=== PATIENT | female | born 1955 | race Caucasian/White ===

== ENCOUNTER 2020-10-07 08:33 | Outpatient (CLI) | payer BC, SELFPAY ==
--- NOTE | 2020-10-07 08:30 | CT_ITS ---
WS: [id number] CT scan of the abdomen and pelvis with Oral and IV contrast. Additional two-dimensional coronal and s agittal reconstruction was performed. 10/07/2020 Clinical Data: ABDOMINAL PAIN RIGHT LOWER QUADRANT Comparison: None. DLP: 1103.[address] scans at [facility] use at least one of these dose optimization techniques: automat ed exposure control; mA and/or kV adjustment per patient size (includes targeted exams where dose is matched to clinical indication); or iterative reconstruction. Findings: The lower lungs show no nodules, masses or effusions. The liver, gallbladder, spleen, adrenal glands and pancreas are normal. The kidneys show equal bilateral contrast excretion a small right renal central cyst. No masses, hydr onephrosis or renal calculi are seen.. The abdominal aorta is normal in size. No appendicitis or diverticulitis is seen. There are numerous sigmoid diverticula. Oral contrast is i n the stomach, small bowel and colon, and there is no bowel dilatation. No abscess, adenopathy, ascites, mass, obstruction or free air is seen. The bladder is unremarkable. No inguinal hernia is seen. The uterus is absent. There are small clips in the rectus abdominis muscl es from surgery. The bones of the lower thorax, lumbar spine, pelvis, and hips are normal. Incidental bone islands are noted in the left sacrum, right ilium and right femoral head. CT/CT abdomen pelvis w con* [id number] Impression: Negative for acute intra-abdominal or pelvic abnormalities.
[2020-10-07] MEDS: iohexol 300 mg/mL 50 mL Btl PO (09:10)
[2020-10-07 10:29] LABS: Blood Urea Nitrogen 14 mg/dL (8-23); Glomerular Filtration Rate 124.6 mL/min (90-130)
[2020-10-07] MEDS: iohexol 300 mg/mL 100 mL Btl IV (10:33)
== END 2020-10-07 08:34 | disposition home or self-care (01) ==
LOC: RADWPI 08:38
PROVIDERS: PCP Family Medicine; Visit Provider Family Medicine
DX: R10.31 Right lower quadrant pain (principal)
CPT/HCPCS: 74177; 82565; 84520; Q9967

== ENCOUNTER 2020-12-23 06:53 | Outpatient (CLI) | payer BC, SELFPAY ==
--- NOTE | 2020-12-23 07:15 | USCV_ITS ---
Pilar Savage Age: 65 Gender: F : 1955 Exam Date: 12/23/2020 07:16 Ordering Phys: Jose Fagan MD Technologist: Ketty Sanchez Exam Location: [facility] [place] Indication: FOOT PAIN, LEFT HISTORY: Lower extremity pain. PROCEDURES: Venous duplex imaging was performed in only the left lower extremity. The following venous structures were evaluated: common femoral vein, profunda vein, proximal portion of the greater saphenous vein, superficial femoral vein, and the popliteal vein. In addition, the posterior tibial and peroneal trunk were evaluated. Serial compression, augmentation maneuvers, and spectral Doppler flow evaluation were performed. FINDINGS: Normal 2-D Doppler and augmentation and compressibility throughout the lower extremity venous structures. Additional imaging through the proximal calf veins also reveals no thrombus. Limited evaluation of the greater saphenous vein is patent with no thrombus.. CONCLUSIONS No evidence of left lower extremity DVT. Karthikeyan Vaughan MD (Electronically Signed) Final Date: 23 December 2020 08:30 S
== END 2020-12-23 06:54 | disposition home or self-care (01) ==
LOC: RAD 06:57
PROVIDERS: PCP Family Medicine; Visit Provider Family Medicine
DX: M79.672 Pain in left foot (principal)
CPT/HCPCS: 93971

== ENCOUNTER 2021-02-19 08:08 | Outpatient (CLI) | payer BC, SELFPAY ==
--- NOTE | 2021-02-19 08:27 | XR_ITS ---
WS: [id number] LEFT ANKLE: 3 VIEW(S) TECHNIQUE: AP, oblique(s) and lateral. HISTORY: LEFT FOOT PAIN COMPARISON: None available. Normal anatomic alignment with no fracture or dislocation. No joint effusion or widening of the ankle mortise. No significant degenerative changes at the joint spaces. No soft tissue abnormality. XR/XR ankle LT min 3V* [id number] IMPRESSION: Normal LEFT ankle.
== END 2021-02-19 08:09 | disposition home or self-care (01) ==
PROVIDERS: PCP Family Medicine; Visit Provider Family Medicine
DX: M79.672 Pain in left foot (principal)
CPT/HCPCS: 73610

== ENCOUNTER → 2022-03-14 07:54 | Outpatient (BNVA) | payer MEDICARE, SELFPAY | PROVIDERS: PCP Family Medicine; Visit Provider Surgery | DX: K21.9 Gastro-esophageal reflux disease without esophagitis (principal) | CPT/HCPCS: 99204 ==

== ENCOUNTER 2022-05-04 09:34 | Day surgery (SDC) | payer MEDICARE, SELFPAY ==
[2022-05-03 08:35] VITALS: BMI 30.2
[2022-05-04 09:54] VITALS: BP 151/83; PULSE 80; RESP 18; TEMP 37; O2SAT 98
[2022-05-04] MEDS: sodium chloride 0.9% 1,000 ML 30 ML IV (10:02)
--- NOTE | 2022-05-04 10:52 | ANES.PREANE2 ---
Pre-Anesthetic Assessment Height/Weight: Height 1.57 m Weight 74.843 kg Temp Pulse Resp BP Pulse Ox 98.6 F 80 18 151/83 98 05/04/22 09:54 05/04/22 09:54 05/04/22 09:54 05/04/22 09:54 05/04/22 09:54 Preop Diagnosis: upper gi symptoms Operation Date: 05/04/22 11:00 Proposed Procedures p EGD 50893/k21.9(Not Applicable) - Ravi Penny MD Last intake: Intake Last Liquid Date 05/03/22 Last Liquid Time 20:00 Last Solid Date 05/03/22 Last Solid Time 20:00 Airway Submandibular: within normal limits Cervical ROM: within normal limits Mallampati: Class I GERD poorly controlled Anesthetic Plan ASA status: 2 Anesthesia: MAC Medications/Allergies Home Medications Medication Instructions Recorded Confirmed Last Taken Type amlodipine 10 mg tablet 10 mg PO DAILY 05/03/22 05/03/22 05/03/22 History ascorbic acid (vitamin C) 500 mg 500 mg PO DAILY 05/03/22 05/03/22 05/03/22 History tablet (Vitamin C) atorvastatin 10 mg tablet 10 mg PO DAILY 05/03/22 05/03/22 05/03/22 History cholecalciferol (vitamin D3) 50 50 mcg PO DAILY 05/03/22 05/03/22 05/03/22 History mcg (2,000 unit) capsule (Vitamin D3) coenzyme Q10 100 mg capsule 100 mg PO DAILY 05/03/22 05/03/22 05/03/22 History (CoQ-10) tamoxifen 20 mg tablet 20 mg PO DAILY 05/03/22 05/03/22 05/03/22 History venlafaxine 37.5 mg tablet 37.5 mg PO DAILY 05/03/22 05/03/22 05/03/22 History Allergies Allergy/AdvReac Type Severity Reaction Status Date / Time No Known Allergies Allergy Verified 05/03/22 08:33 Current Medications Generic Name Dose Route Start Last Admin Trade Name Freq PRN Reason Stop Dose Admin Sodium Chloride 1,000 mls @ 30 mls/hr 05/04/22 10:00 05/04/22 10:02 Sodium Chloride 0.9% IV 05/05/22 09:59 30 mls/hr .Q24H RAN Administration PFSH Anesthesia Medical History Dyslipidemia GERD (gastroesophageal reflux disease) History of breast cancer Hypertension Surgical History History of breast reconstruction History of colonoscopy History of hysterectomy History of left mastectomy Social History Smoking and tobacco status: never smoked Data Anesthesia Cardiac Studies: No Data to Display
--- NOTE | 2022-05-04 11:39 | W.PM.OPSFHP ---
Same Day Surgery H&P Indication for Procedure/HPI DATE OF PROCEDURE: May 04, 2022 CHIEF COMPLAINT/INDICATIONFOR SURGICAL PROCEDURE: egd PREOP DIAGNOSIS: upper gi symptoms PLANNED PROCEDURE: Operation Date: 05/04/22 11:00 Proposed Procedures p EGD 43342/k21.9(Not Applicable) - Ravi Penny MD Medications/Allergies* Home Medications Medication Instructions Recorded Confirmed Type amlodipine 10 mg tablet 10 mg PO DAILY 05/03/22 05/03/22 History ascorbic acid (vitamin C) 500 mg 500 mg PO DAILY 05/03/22 05/03/22 History tablet (Vitamin C) atorvastatin 10 mg tablet 10 mg PO DAILY 05/03/22 05/03/22 History cholecalciferol (vitamin D3) 50 50 mcg PO DAILY 05/03/22 05/03/22 History mcg (2,000 unit) capsule (Vitamin D3) coenzyme Q10 100 mg capsule 100 mg PO DAILY 05/03/22 05/03/22 History (CoQ-10) tamoxifen 20 mg tablet 20 mg PO DAILY 05/03/22 05/03/22 History venlafaxine 37.5 mg tablet 37.5 mg PO DAILY 05/03/22 05/03/22 History Allergies/Adverse Reactions Allergy/AdvReac Type Severity Reaction Status Date / Time No Known Allergies Allergy Verified 05/03/22 08:33 Current Medications: Generic Name Dose Route Start Last Admin Trade Name Freq PRN Reason Stop Dose Admin Sodium Chloride 1,000 mls @ 30 mls/hr 05/04/22 10:00 05/04/22 10:02 Sodium Chloride 0.9% IV 05/05/22 09:59 30 mls/hr .Q24H RAN Administration Pertinent History/Comorbid Conditions* Medical History (Updated 03/14/22 @ 08:18 by Ravi Penny MD) Dyslipidemia GERD (gastroesophageal reflux disease) History of breast cancer Hypertension Surgical History (Updated 03/14/22 @ 08:18 by Ravi Penny MD) History of breast reconstruction History of colonoscopy History of hysterectomy History of left mastectomy Social History Smoking and tobacco status: never smoked Pertinent Exam Findings alert, oriented x 3 and regular rate & rhythm Recommendations Surgery/Procedure today Coding Level of Care Code Acute [employer]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
[2022-05-04 12:03] VITALS: BP 155/73; PULSE 88; RESP 18; TEMP 36.4; O2SAT 96
[2022-05-04 12:19] VITALS: BP 145/78; PULSE 72; RESP 16; O2SAT 96
--- NOTE | 2022-05-04 13:25 | ANE.PACU2 ---
Inpatient post-anesthesia follow up: Vital signs: Temperature 97.5 F Pulse Rate 72 Respiratory Rate 16 Blood Pressure 145/78 Pulse Oximetry 96 Oxygen Delivery Me thod Room Air Oxygen Flow Rate 4 Fraction of Inspir ed Oxygen Hydration adequate: Yes Nausea and vomiting: No Pain level: 1 Mental status: Baseline
== END 2022-05-04 12:25 | disposition home or self-care (01) ==
PROVIDERS: PCP Family Medicine; Visit Provider Surgery
PROC: 0DJ08ZZ Inspection of Upper Intestinal Tract, Via Natural or Artificial Opening Endoscopic (ICD-10-PCS; CPT 43235; principal; 2022-05-04 11:00)
DX: K21.9 Gastro-esophageal reflux disease without esophagitis (principal); K20.90 Esophagitis, unspecified without bleeding; E78.5 Hyperlipidemia, unspecified; I10 Essential (primary) hypertension; Z85.3 Personal history of malignant neoplasm of breast; K29.50 Unspecified chronic gastritis without bleeding; B96.81 Helicobacter pylori [H. pylori] as the cause of diseases classified elsewhere
CPT/HCPCS: 43239; 88305; J2704; J7030

== ENCOUNTER → 2022-05-17 09:38 | Outpatient (BNVA) | payer MEDICARE, SELFPAY | PROVIDERS: PCP Family Medicine; Visit Provider Surgery | DX: Z09 Encounter for follow-up examination after completed treatment for conditions other than malignant neoplasm (principal) | CPT/HCPCS: 99212 ==

== ENCOUNTER → 2022-08-08 14:14 | Outpatient (BNVA) | payer MEDICARE, SELFPAY | PROVIDERS: PCP Family Medicine; Visit Provider Family Medicine | DX: J40 Bronchitis, not specified as acute or chronic (principal); Z20.822 Contact with and (suspected) exposure to COVID-19 | CPT/HCPCS: 87426 ==

== ENCOUNTER → 2022-08-15 08:19 | Outpatient (BNVA) | payer MEDICARE, SELFPAY | PROVIDERS: PCP Family Medicine; Referring Provider Family Medicine; Visit Provider Surgery | DX: R10.9 Unspecified abdominal pain (principal); K21.9 Gastro-esophageal reflux disease without esophagitis | CPT/HCPCS: 99203; 99213 ==

== ENCOUNTER 2022-08-25 10:22 | Outpatient (CLI) | payer MEDICARE, SELFPAY | END 2022-08-25 10:23 | disposition home or self-care (01) | LOC: LAB 10:26 | PROVIDERS: PCP Family Medicine; Visit Provider Surgery | DX: A04.8 Other specified bacterial intestinal infections (principal); K21.9 Gastro-esophageal reflux disease without esophagitis; R10.9 Unspecified abdominal pain | CPT/HCPCS: 87338 ==

== ENCOUNTER → 2022-11-07 07:59 | Outpatient (BNVA) | payer MEDICARE, SELFPAY | PROVIDERS: PCP Family Medicine; Visit Provider Family Medicine | DX: E78.5 Hyperlipidemia, unspecified (principal); I10 Essential (primary) hypertension; Z85.3 Personal history of malignant neoplasm of breast | CPT/HCPCS: 80053; 80061; 85025 ==

== ENCOUNTER → 2022-11-16 09:32 | Outpatient (BNVA) | payer MEDICARE, SELFPAY | PROVIDERS: PCP Family Medicine; Visit Provider Podiatrist Foot & Ankle Surgery | DX: M19.071 Primary osteoarthritis, right ankle and foot (principal); M19.072 Primary osteoarthritis, left ankle and foot; M21.621 Bunionette of right foot; M21.622 Bunionette of left foot | CPT/HCPCS: 73630; 99204 ==

== ENCOUNTER → 2023-03-16 08:26 | Outpatient (BNVA) | payer MEDICARE, SELFPAY | PROVIDERS: PCP Family Medicine; Visit Provider Family Medicine | DX: I10 Essential (primary) hypertension (principal); E78.5 Hyperlipidemia, unspecified; Z51.81 Encounter for therapeutic drug level monitoring | CPT/HCPCS: 80053; 80061; 85025 ==

== ENCOUNTER → 2023-10-09 08:18 | Outpatient (BNVA) | payer MEDICARE, SELFPAY | PROVIDERS: PCP Family Medicine; Visit Provider Family Medicine | DX: E78.5 Hyperlipidemia, unspecified (principal); I10 Essential (primary) hypertension | CPT/HCPCS: 80053; 80061; 85025 ==

== ENCOUNTER → 2023-10-10 13:23 | Outpatient (BNVA) | payer MEDICARE, SELFPAY | PROVIDERS: PCP Family Medicine; Visit Provider Family Medicine | DX: J02.9 Acute pharyngitis, unspecified (principal) | CPT/HCPCS: 87070 ==

== ENCOUNTER → 2023-11-14 11:04 | Outpatient (BNVA) | payer MEDICARE, SELFPAY | PROVIDERS: PCP Family Medicine; Visit Provider Family Medicine | DX: J40 Bronchitis, not specified as acute or chronic (principal); J06.9 Acute upper respiratory infection, unspecified | CPT/HCPCS: 87400 ==

== ENCOUNTER 2023-11-17 13:53 | Outpatient (CLI) | payer MEDICARE, SELFPAY ==
--- NOTE | 2023-11-17 14:13 | XRR_ITS ---
PROCEDURE INFORMATION: Exam: XR Chest Exam date and time: 11/17/2023 2:23 PM Age: 68 years old Clinical indication: Cough and fever; Prior surgery; Surgery date: 6+ months; Surgery type: Left breast mastectomy; Patient HX: HX of breast cancer. Upper respiratory infection; Intermittent fever; Productive cough; HX breast CA & lt mastectomy with reconstruction TECHNIQUE: Imaging protocol: Radiologic exam of the chest. Views: 2 views. COMPARISON: CT abdomen pelvis w con* [id number] 10/07/2020 10:31 AM FINDINGS: Lungs: Unremarkable. No consolidation. Pleural spaces: Unremarkable. No pleural effusion. No pneumothorax. Heart/Mediastinum: Unremarkable. No cardiomegaly. Bones/joints: Unremarkable. XR/XR chest 2V* [id number] IMPRESSION: No acute findings.
== END 2023-11-17 13:54 | disposition home or self-care (01) ==
LOC: LAB 13:58
PROVIDERS: PCP Family Medicine; Visit Provider Family Medicine
DX: J06.9 Acute upper respiratory infection, unspecified (principal); Z90.12 Acquired absence of left breast and nipple; Z85.3 Personal history of malignant neoplasm of breast; R50.9 Fever, unspecified
CPT/HCPCS: 71046; 80053; 85025; 86140

== ENCOUNTER → 2023-12-07 11:32 | Outpatient (BNVA) | payer MEDICARE, SELFPAY | PROVIDERS: PCP Family Medicine; Visit Provider Clinical Nurse Specialist Adult Health | DX: J06.9 Acute upper respiratory infection, unspecified (principal); J02.9 Acute pharyngitis, unspecified | CPT/HCPCS: 85025; 86140; 86308; 87070; 87420; 87880 ==

== ENCOUNTER → 2024-02-20 13:13 | Outpatient (BNVA) | payer MEDICARE, SELFPAY | PROVIDERS: PCP Family Medicine; Visit Provider Family Medicine | DX: R20.2 Paresthesia of skin (principal) | CPT/HCPCS: 80053; 86140 ==

== ENCOUNTER → 2024-07-12 07:44 | Outpatient (BNVA) | payer MEDICARE, SELFPAY | PROVIDERS: PCP Family Medicine; Visit Provider Family Medicine | DX: I10 Essential (primary) hypertension (principal); E78.5 Hyperlipidemia, unspecified; K21.9 Gastro-esophageal reflux disease without esophagitis; Z85.3 Personal history of malignant neoplasm of breast | CPT/HCPCS: 80053; 80061; 85025 ==

== ENCOUNTER 2024-10-15 15:27 | Outpatient (CLI) | payer MEDICARE, SELFPAY ==
--- NOTE | 2024-10-15 15:33 | XR_ITS ---
WS: [id number] Exam: XR hip RT 1V wo/w pel [id number] Date/Time of Exam: 10/15/2024 3:38 PM Reason For Exam: hip pain No acute fracture. Minimal degenerative change of the acetabulum. Normal soft tissues. Surgical clips in the RIGHT abdomen and pelvis. XR/XR hip RT 1V wo/w pel [id number] IMPRESSION: 1. Minimal degenerative change.
--- NOTE | 2024-10-15 15:33 | XR_ITS ---
WS: [id number] Exam: XR lumbar spine 1V [id number] Date/Time of Exam: 10/15/2024 3:38 PM Reason For Exam: back pain Single lateral view of the lumbar spine is submitted. No fracture noted. Facet arthropathy at L4-5 an d L5-S1. Slight degenerative anterolisthesis of L4 on L5. Mild disc space narrowing at all levels. Mi nimal spondylosis. IMPRESSION1. No fracture or malalignment. 2. Degenerative changes as above.
== END 2024-10-15 15:28 | disposition home or self-care (01) ==
LOC: RAD 15:30
PROVIDERS: PCP Family Medicine; Visit Provider Family Medicine
DX: M47.896 Other spondylosis, lumbar region (principal); M25.551 Pain in right hip
CPT/HCPCS: 72020; 73501

== ENCOUNTER → 2024-12-03 09:06 | Outpatient (BNVA) | payer MEDICARE, OTHER, SELFPAY | PROVIDERS: PCP Family Medicine; Visit Provider Family Medicine | DX: J06.9 Acute upper respiratory infection, unspecified (principal) | CPT/HCPCS: 87400; 87426 ==

== ENCOUNTER → 2025-08-07 08:38 | Outpatient (BNVA) | payer MEDICARE, OTHER, SELFPAY | PROVIDERS: PCP Family Medicine; Visit Provider Family Medicine | DX: I10 Essential (primary) hypertension (principal); E78.5 Hyperlipidemia, unspecified; Z85.3 Personal history of malignant neoplasm of breast | CPT/HCPCS: 80053; 80061; 85025 ==

== ENCOUNTER 2025-09-16 14:44 | Outpatient (CLI) | payer MEDICARE, OTHER, SELFPAY ==
--- NOTE | 2025-09-16 14:00 | XR_ITS ---
WS: [id number] SCREENING DEXA SCAN [employer] CLINICAL INFORMATION: screening COMPARISON: None. FINDINGS: The L1-L4 bone mineral density measures 1.072 g/cm2. This corresponds to a T score score of -0.9 and Z score of 0.5. Left femoral neck bone mineral density measures 0.953 g/cm2. This corresponds to a T score of -0.4 and Z score of 0.8. Right femoral neck bone mineral density measures 0.932 g/cm2. This corresponds to a T score -0.6of and Z score of 0.6. Mean femoral neck bone mineral density measures 0.942 g/cm2. This corresponds to a T score of -0.5 and Z score of 0.7. XR/XR DEXA axial skeleton* [id number] IMPRESSION: Normal bone mineralization. Patient's FRAX calculated 10 year probability for major osteoporotic fracture i s 10.1% and osteoporotic hip fracture is 1.5%.
== END 2025-09-16 14:45 | disposition home or self-care (01) ==
LOC: RAD 14:46
PROVIDERS: PCP Family Medicine; Visit Provider Family Medicine
DX: M79.672 Pain in left foot (principal); M79.671 Pain in right foot; S93.325A Dislocation of tarsometatarsal joint of left foot, initial encounter; G57.61 Lesion of plantar nerve, right lower limb; X58.XXXA Exposure to other specified factors, initial encounter
CPT/HCPCS: 73630; 77080; 99214

== ENCOUNTER 2025-10-03 09:18 | Outpatient (CLI) | payer MEDICARE, OTHER, SELFPAY ==
--- NOTE | 2025-10-03 13:00 | MR_ITS ---
WS: [id number] MRI LEFT FOOT WITHOUT CONTRAST. COMPARISON: 09/16/2025 Multiplanar, multisequence imaging is performed without contrast. History: Palpable area LEFT foot. Possible Lisfranc fracture. The palpable area along the dorsal foot corresponds to hypertrophic osteophyte formation and arthritic changes involving the dorsal surface of the medial and intermediate cuneiforms. There is narrowing of the joint space between the cuneiforms and overlying soft tissue thickening due to the osteophyte formation next extending dorsally. The overlying ligament from the cuneiform to the metatarsals is being displaced and distorted. The dorsal band of the Lisfranc ligament is not identified and does appear to be torn. The main intraosseous component of the Lisfranc ligament and the plantar component are intact and well visualized. Alignment between the cuneiforms and the metatarsals is normal. There is a small amount of marrow edema in the navicular, medial and intermediate cuneiforms. Tiny amount of edema and subchondral cyst in the lateral cuneiform. Smaller subchondral cystic changes are noted in the proximal metatarsals. No additional abnormalities noted within the ligaments or tendons. MR/MR foot LT wo con* [id number] IMPRESSION: 1. Complete tear dorsal band of the Lisfranc ligament. 2. The interosseous band and plantar bands of the Lisfranc ligament are intact and well visualized. 3. Hypertrophic osteophyte formation with marrow edema and narrowing of the sanju int spaces contributing to the palpable area along the midfoot which correspond s to osteophytes from the medial and intermediate cuneiforms. 4. Marrow edema in several of the bones of the foot including the navicular, m edial and intermediate cuneiforms and subchondral cysts in several of the metat arsals. Additional subchondral cyst in the lateral cuneiform.
--- NOTE | 2025-10-03 13:45 | MR_ITS ---
WS: [id number] MRI RIGHT FOOT WITHOUT CONTRAST. COMPARISON: Radiograph 09/16/2025 Multiplanar, multisequence imaging is performed without contrast. History: Possible Larson's neuroma. Seen best on the axial T1 and proton density sequences is an intermediate signal nodule measuring 3.7 mm in the second intermetatarsal space. This is closely associated with the interdigital nerve along the plantar surface of the foot. There is no extension dorsally or dumbbell shape. This is a single focus extending just slightly greater to behind the second metatarsal. There is no bursitis or associated fluid. No additional intermediate soft tissue focus. There is mild hallux valgus deformity with mild arthritic changes at the first metatarsophalangeal joint. Normal appearance of the flexor hallucis longus. No edema in the sesamoids. There is a small amount of edema and subchondral cysts noted in the medial and lateral first metatarsal head. No significant synovial thickening. No additional marrow edema. No stress fractures. Normal alignment at the tarsometatarsal articulation. No fluid or ganglion identified. Normal appearance of the posterior MR/MR foot RT wo con* [id number] IMPRESSION: 1. Intermediate signal mass measuring 3.7 mm in the second intermetatarsal spa ce closely associated with the interdigital nerve. Highly suspicious for Larson 's neuroma. No associated bursitis. 2. Mild hallux valgus deformity. 3. Subchondral cystic/erosive changes in the first metatarsal head. These crawford ges are extra-articular. Favor this is probably arthritis but due to the positi on of the erosions consider gout as a possible etiology 4. No stress fractures.
== END 2025-10-03 09:19 | disposition home or self-care (01) ==
PROVIDERS: PCP Family Medicine; Visit Provider Podiatrist Foot & Ankle Surgery
DX: S93.692A Other sprain of left foot, initial encounter (principal); X58.XXXA Exposure to other specified factors, initial encounter; M19.072 Primary osteoarthritis, left ankle and foot; M21.6X2 Other acquired deformities of left foot; M89.8X7 Other specified disorders of bone, ankle and foot; M85.672 Other cyst of bone, left ankle and foot; M25.772 Osteophyte, left ankle; G57.61 Lesion of plantar nerve, right lower limb; M20.11 Hallux valgus (acquired), right foot; M19.071 Primary osteoarthritis, right ankle and foot; M85.671 Other cyst of bone, right ankle and foot; R93.6 Abnormal findings on diagnostic imaging of limbs; M24.275 Disorder of ligament, left foot
CPT/HCPCS: 73718

== ENCOUNTER → 2025-10-15 07:35 | Outpatient (BNVA) | payer MEDICARE, OTHER, SELFPAY | PROVIDERS: PCP Family Medicine; Visit Provider Podiatrist Foot & Ankle Surgery | DX: G57.61 Lesion of plantar nerve, right lower limb (principal); M19.072 Primary osteoarthritis, left ankle and foot; S93.322A Subluxation of tarsometatarsal joint of left foot, initial encounter; X58.XXXA Exposure to other specified factors, initial encounter | CPT/HCPCS: 99214 ==